=== PATIENT | male | born 1960 | race Caucasian/White ===

== ENCOUNTER → 2016-11-27 | Day surgery (SDC) | payer BC ==
[~2016-11-27] VITALS: Ht 182.8 cm; Wt 88.5 kg
[~2016-11-27] MED LIST: ALTOCOR20 MG PO; ASPIRIN81 M1 PO; AZO-SULFISOXAZO1 TA1 PO; CIPRO500 MG PO; DOXYCYCLINE MO100 MG PO; HYZAAR 50/12.5M1 TAB PO; LOPRESSOR50 MG PO; Metformin Hydr500 MG PO; NATURE'S BLEND F1 MG PO; VITAMIN D400 I1 PO
--- NOTE | ~2016-11-27 | O ---
[place], [place] OPERATIVE NOTE NAME: IVY TRACY UNIT #: [id number] ROOM: DOCTOR: KEY LORENZO MD BIRTHDATE: [birth year] DOS: 11/27/2016 INDICATIONS: The patient is a 56-year-old who has presented with some blood in the stool, undergoing colonic screening. ALLERGIES: No known medication. FAMILY HISTORY: Noncontributory. PAST SURGICAL HISTORY: Right leg cyst. PAST MEDICAL HISTORY: Diabetes, hypercholesterolemia, hypertension. SOCIAL HISTORY: Nonsmoker, nonalcohol consumer. PROCEDURE: Today's procedure part of investigation is colonoscopy plus polypectomy with a snare and polypectomy with forceps piecemeal polypectomy. PREMEDICATION: Versed and Diprivan. SCOPE: Olympus forward viewing gastroscope Q10 video. REPORT: After putting the patient in the left lateral position and after application of lubricant to the scope, the scope was introduced. Thereafter, under direct visualization, I advanced through the length of colon without difficulty. Two polypoid lesions at sigmoid colon. One was removed with a snare, one was removed with piecemeal polypectomy. Base of the cecum explored. Appendiceal orifice identified. Ileocecal valve was defined. Scope was gradually withdrawn from ascending, transverse, descending colon. The patient extubated, tolerated procedure well. IMPRESSION: Sessile colonic polyp at sigmoid colon x 2. One removed with piecemeal polypectomy, one removed with a snare polypectomy. PLAN: Supportive management. Source of bleed could have been superficial rectal bleed. I thank you very much indeed. The patient is going to be following with you routinely in office and with us p.r.n. in the GI clinic. Thank you again, Dr. Aguirre, for your kind referral. [place], [place] OPERATIVE NOTE NAME: IVY TRACY UNIT #: [id number] ROOM: DOCTOR: KEY LORENZO MD BIRTHDATE: [birth year] KEY LORENZO MD CM:OPRECORD:OPERATIVE NOTE 5 KEY LORENZO MD 11/27/16 0851 interface
[2016-11-27 07:25] VITALS: BP 145/86
[2016-11-27 08:18] VITALS: BP 123/78
[2016-11-27 08:31] VITALS: BP 127/77
[2016-11-27 08:44] VITALS: BP 127/85
== END | disposition home or self-care (01) ==
LOC: SDC 10-11 08:00
DX: D12.5 Benign neoplasm of sigmoid colon (principal); E11.9 Type 2 diabetes mellitus without complications; I10 Essential (primary) hypertension; E78.00 Pure hypercholesterolemia, unspecified; Z82.49 Family history of ischemic heart disease and other diseases of the circulatory system; Z83.3 Family history of diabetes mellitus

== ENCOUNTER → 2022-09-09 | Outpatient (CLI) | payer BC ==
[2022-09-09 13:10] LABS: BASO # 0.1 10*3/uL (0.0-0.1); BASO % 0.6 % (0.0-1.0); EOS # 0.7 10*3/uL (0.0-0.4); EOS % 7.8 % (1.0-4.0); HEMATOCRIT 41.9 % (42.0-52.0); LYMPH # 3.1 10*3/uL (1.3-4.4); LYMPH % 37.1 % (27.0-41.0); MEAN CELL VOLUME 87.5 fl (80.0-94.0); MEAN CORPUSCULAR HGB 30.5 pg (27.0-31.0); MEAN CORPUSCULAR HGB CONC 34.8 g/dl (33.0-37.0); MEAN PLATELET VOLUME 9.1 fl (9.6-12.3); MONO # 0.6 10*3/uL (0.1-1.0); MONO % 7.3 % (3.0-9.0); PLATELET COUNT AUTOMATED 262 10*3/uL (130-400); RED BLOOD COUNT 4.79 10*6/uL (4.50-5.90); RED CELL DISTRI WIDTH 13.1 % (0-14.5); WHITE BLOOD COUNT 8.4 10*3/uL (4.8-10.8)
[2022-09-09 13:41] LABS: ALKALINE PHOSPHATASE 87 U/L (46-116); BUN 13 mg/dl (9-23); CHLORIDE 102 mmol/L (98-107); CHOLESTEROL 154 mg/dL (<200); FREE T4 1.09 ng/dl (0.89-1.76); LDL CHOLESTEROL 76 mg/dL (9-159); POTASSIUM 4.4 mmol/L (3.4-5.1); SGPT/ALT 20 U/L (10-49); THYROID STIM HORMONE (HS) 1.529 uIU/ml (0.550-4.780); TOTAL PROTEIN 7.7 gm/dL (6.0-8.0); TRIGLYCERIDES 236 mg/dl (<150)
[2022-09-09 13:49] LABS: VITAMIN D, 25-HYDROXY 56.6 ng/mL (30-100)
== END | disposition home or self-care (01) ==
LOC: LAB 12:24
PROVIDERS: ATTEND Internal Medicine
DX: Z13.0 Encounter for screening for diseases of the blood and blood-forming organs and certain disorders involving the immune mechanism (principal); Z13.1 Encounter for screening for diabetes mellitus; Z13.21 Encounter for screening for nutritional disorder; Z13.220 Encounter for screening for lipoid disorders; Z13.228 Encounter for screening for other metabolic disorders; Z13.29 Encounter for screening for other suspected endocrine disorder; Z13.6 Encounter for screening for cardiovascular disorders; Z13.9 Encounter for screening, unspecified; Z12.5 Encounter for screening for malignant neoplasm of prostate; E55.9 Vitamin D deficiency, unspecified; Z13.89 Encounter for screening for other disorder; E11.40 Type 2 diabetes mellitus with diabetic neuropathy, unspecified; E11.65 Type 2 diabetes mellitus with hyperglycemia; I10 Essential (primary) hypertension

== ENCOUNTER → 2022-09-17 | Outpatient (CLI) | payer BC | END | disposition home or self-care (01) | LOC: LAB 15:41 | PROVIDERS: ATTEND Internal Medicine | DX: E11.9 Type 2 diabetes mellitus without complications (principal) ==

== ENCOUNTER → 2023-07-08 | Outpatient (CLI) | payer OTHER | END | disposition home or self-care (01) | LOC: RESCLI 09:31 | PROVIDERS: ATTEND Student in an Organized Health Care Education/Training Program | DX: E11.65 Type 2 diabetes mellitus with hyperglycemia (principal); E78.2 Mixed hyperlipidemia; I10 Essential (primary) hypertension; N52.9 Male erectile dysfunction, unspecified; M10.9 Gout, unspecified; Z79.84 Long term (current) use of oral hypoglycemic drugs; Z79.82 Long term (current) use of aspirin; Z79.899 Other long term (current) drug therapy ==